=== PATIENT | female | born 1965 | race Caucasian/White ===

== ENCOUNTER 2016-12-26 12:56 | Emergency (ER) | payer BC ==
[~2016-12-26] VITALS: Ht 167.6 cm; Wt 108.9 kg
[~2016-12-26 12:56] MED LIST: ADVIL PM 38 MG-1 TAB PO; ASPIRIN 81MG TA81 MG PO; AURALGAN 14 ML14 ML OT; CETIRIZINE10 MG OR; CIPRO 500MG TA500 MG PO; DIOVAN320 MG PO; ETODOLAC400 MG PO; FLAGYL500 M1 PO; FLEXERIL10 M1 PO; GABAPENTIN 600600 MG PO; GABAPENTIN100 MG PO; JANUVIA100 MG PO; METHYLPREDNISONE4 MG PO; NAPROSYN 500MG500 MG PO; NEURONTIN100 MG OR; OLMSRTN-AMLDPN1 EACH PO; PHENERGAN 25MG.25 M1 PO; PHENERGAN25 M2 RC; SIMVASTATIN40 MG PO; TESSALON PERLE100 MG PO; TRIBENZOR 10 MG1 TAB PO; TYLENOL WITH CO1 TA1 PO; ULTRAM 50 MG TA50 MG PO; ZITHROMAX Z PA250 MG PO
--- OUTSIDE RECORDS SUMMARY | 2016-12-26 13:00 | External Medical Summary Rpt | CCD ---
Author Author Conduent Organization Conduent Address Unknown Phone Unavailable Purpose Continuity of Care Document - through 2016
--- OUTSIDE RECORDS SUMMARY | 2016-12-26 13:00 | External Medical Summary Rpt | CCD ---
Demographics Preferred Language Urdu Marital Status Unknown Confucianism Affiliation Unknown Race Unknown Ethnic Group Unknown Author Author , MIGUEL A GRADY Address Unknown Phone [email or web address] Immunization Name Date Rout CVX Reac Dose Comm Prov Is Faci e tion ent ider Refu lity Give sed n Td 03-0 9 999 Hist H149 No H149 (cheryle 4-19 ori lt), 97 al Info adso rmat rbed ion - Sour ce Unsp ecif ied
--- OUTSIDE RECORDS SUMMARY | 2016-12-26 13:00 | External Medical Summary Rpt | CCD ---
Author Author , MIGUEL A Organization MIGUEL A Address Unknown Phone [email or web address] Care [email or web address] Providers Care Cleat Layer Name Role Phone GREY AHN MD, Unavailable Unavailable GREY AHN MD Purpose Continuity of Care Document - 02-24-2013 through 2016 Problems Code Diagnosis DOS Provider Status 847.0 847.0 [facility]-2013 [facility] 847.2 02-24-2013 Fredis SPR[facility] REG[facility] E849.3 E849.3 ACC 02-24-[address] [facility] E885.9 E885.9 FALL 02-24-2013 Fredis FROM [facility] SLIPPING, Hospital TRIPPING, OR ST[facility]BLING [facility] K52.9 NONINFECTIV E GASTROENTER ITIS AND COLITIS, UNSPECIFIED R10.9 UNSPECIFIED ABDOMINAL PAIN S89.90XA UNSPECIFIED INJURY OF UNSPECIFIED LOWER LEG, INIT ENCNTR Allergies, Adverse Reactions, Alerts Type Allergy to substance Adverse Reaction to Substance Substance Reaction Severity INGREDIENT: NO KNOWN Unknown Unknown - NO KNOWN DRUG ALLERGY Vital Signs 02-24-2013 18:33 Name Value Interpretat Reference Comment ion Range BP 101 mm[Hg] Diastolic BP Systolic 156 mm[Hg] Heart 82 /min Rate/Pulse O2% 98 % Respiratory 16 /min Rate 02-24-2013 18:24 Name Value Interpretat Reference Comment ion Range BP 101 mm[Hg] Diastolic BP Systolic 156 mm[Hg] Heart 85 /min Rate/Pulse O2% 99 % Respiratory 16 /min Rate Encounters Encounter Start End Date Code Location Performer Type Date Emergency NURIA AHN MD (ER) 4 17:49 4 18:36 [facility]
--- OUTSIDE RECORDS SUMMARY | 2016-12-26 13:00 | External Medical Summary Rpt | CCD ---
Author Author , MIGUEL A Organization MIGUEL A Address Unknown Phone [email or web address] Care Team Providers Care Pilot [employer] Name Role Phone GREY AHN MD, Unavailable Unavailable GREY AHN MD Purpose Continuity of Care Document - 02-24-2013 through 2016 Problems Code Diagnosis DOS Provider Status 847.0 847.0 [facility] 02-24-2013 Fredis [facility] E849.3 E849.3 ACC 02-24-[address] [facility] E885.9 E885.9 FALL 02-24-2013 Fredis FROM [facility] SLIPPING, Hospital TRIPPING, OR STUMBLING [facility] K52.9 NONINFECTIV E GASTROENTER ITIS AND COLITIS, [...] AHN MD (ER) 4 17:49 4 18:36 [facility]
--- OUTSIDE RECORDS SUMMARY | 2016-12-26 13:00 | External Medical Summary Rpt | CCD ---
Demographics Preferred Language Azeri Marital Status Unknown Pentecostalism Affiliation Unknown Race Unknown Ethnic Group Unknown Author Author , MIGUEL A GRADY Address Unknown Phone [email or web address] Immunization Name Date Rout CVX Reac Dose Comm Prov Is Faci e tion ent ider Refu lity Give sed n Td 03-0 9 999 Hist H149 No H149 (cheryle 4-19 ori lt), 97 al Info adso rmat rbed ion - Sour ce Unsp ecif ied
--- NOTE | 2016-12-26 13:09 | Urgent Treatment Center Report ---
History of Present Issue Date/Time Seen by Provider 12/26/16 1308 Visit Reason Pt arrived: Presenting Problem: Location if Accident: Onset of symptoms date/time:/ or onset unknown for: Have you (or family members/close friends) recently traveled outside the [place]? If Yes, where/when: Have you had exposure to infectious disease within the past month? TB? Other? Specify: Source patient, RN notes reviewed Exam Limitations no limitations Comment Patient complains of back pain radiating down her right leg. Has chronic back pain, but has been worse the past few weeks without injury. Saw chiropractor 5- 6 days ago and felt better for a few days following his adjustments. Pain returned 2 days ago. He felt her disks were bulging. He is now out of town. Pain radiates into her right buttock and assisted down right leg. Some relief when arching back. Worse when leaning forward. ALLERGIES Coded Allergies: No Known Allergies (06/04/15) Home Medications Active Scripts Ciprofloxacin HCl (Cipro 500MG TAB) 500 MG PO BID #14 TAB Prov: 04/04/16 Metronidazole (Flagyl) 500 MG PO TID #21 TAB Prov: 04/04/16 ACETAMINOPHEN WITH CODEINE (Tylenol With Codeine #3 Tablet) 1 TAB PO Q8HP PRN MILD TO MODERATE PAIN #12 TAB Prov: 04/04/16 Reported Medications Gabapentin (Gabapentin 600MG) 600 MG PO BID #90 Olmesartan/Amlodipin/Hcthiazid (Xvivlog-Aluhco-Ysuy 20-5-12.5) 1 EACH PO DAILY #30 Sitagliptin Phosphate (Januvia 100MG) 100 MG PO DAILY #30 Empagliflozin (Jardiance) 10 MG PO DAILY History Medical History General CAD? No Angina: Yes [place]: No Hypertension? Yes Hyperlipidemia? Yes CHF? No DVT? No PE? No COPD? No Asthma? No Anemia? No GERD? No Gastric ulcers? No GI Bleed? No Hernia? No Thyroid Problems? No Hypothyroidism? No CVA? No Seizures? No Diabetes? Yes Insulin Dependent: No Insulin Pump: No Home FSBS? Yes Renal Insuffiency? No UTI? No Stones? No BPH? No GB Disease: Yes Nephritic Syndrome? No Asplenia? No Hepatitis? No Sickle Cell Disease? No Arthritis? No Migraines? No Cataracts? No Glaucoma? No MRSA? No HIV? No TB? No Anxiety? No Depression? No Cancer? No More? No Immunization HX DT/Tetanus 5-10 YRS Surgical Hx Previous Surgery?Y RISHI X 2 [place] Appendix Social History Alcohol Alcohol: No Review of Systems All Other Systems Reviewed and Negative Musculoskeletal back pain Physical Exam Vital Signs Vital Signs Date Time Temp Pulse Resp B/P Pulse O2 O2 Flow FiO2 Ox Delivery Rate 12/26 1306 97.8 78 20 135/78 97 General Appearance normal appearance, no apparent distress Respiratory Status No: respiratory distress, trachea midline, chest symmetrical. Lung Sounds bilateral: normal breath sounds, lungs clear. Cardiovascular normal exam, regular rate/rhythm, no peripheral edema, no gallop, no JVD, no murmur, no rub Back normal inspection, strt leg raising(R)-ABNL, decreased range of motion Extremities non-tender, normal range of motion, normal inspection, normal capillary refill Neurologic alert, normal exam, oriented x 3 Mental status normal mood/affect Medical Decision Making LABS/Meds/Orders Pt receiving controlled substance in ED? No Results/Orders Current Medication Orders Sig/Jef Start time Last Medication Dose Route Stop Time Status Admin Ketorolac 60 MG ONCE ONE 12/26 1330 AC Tromethamine IM 12/26 1331 Methylprednisolone 40 MG ONCE ONE 12/26 1330 AC Acetate IM 12/26 1331 Ketorolac 0 .STK-MED ONE 12/26 1322 DC Tromethamine .ROUTE Methylprednisolone 0 .STK-MED ONE 12/26 1322 DC Acetate IM Departure Departure Time of Disposition 1326 Disposition DC Home or Self Care(routine) Clinical Impression Primary Impression: Sciatica Qualifiers: Laterality: right Qualified Code: M54.31 - Sciatica, right side Condition STABLE Referrals Perry JANE,Andrzej (Family) Patient Instructions DI for Back Pain With Sciatica Additional Instructions Stretching, see chiropractor again this week Discharge Counseling Counseled pt/family regarding diagnosis, medications/RX, home care, follow up needs Prescriptions Current Visit Scripts Prednisone (Prednisone 20MG) 20 MG PO BID #10 TAB Comments Monitor sugar. Patient states it is usually well controlled. at 1327
[2016-12-26] MEDS ORDERED: JARDIANCE10 MG PO (13:10)
[2016-12-26] MEDS ORDERED: PREDNISONE 20MG20 MG PO (13:24)
[2016-12-26 13:38] VITALS: BP 135/78
== END 2016-12-26 13:48 | disposition home or self-care (01) ==
LOC: UTC 12:56
DX: M54.31 Sciatica, right side (principal); E11.9 Type 2 diabetes mellitus without complications; E78.5 Hyperlipidemia, unspecified; I10 Essential (primary) hypertension
CPT/HCPCS: J1030